=== PATIENT | male | born 1970 | race Caucasian/White ===

== ENCOUNTER 2021-02-08 14:22 | Outpatient (CLI) | payer OTHER, SELFPAY ==
[2021-02-08] MEDS: 0.9% Saline Lock 10 ML Syringe IV (14:35)
[2021-02-08 14:36] VITALS: BP 172/85; PULSE 104; RESP 22; TEMP 37.3; O2SAT 95; BMI 43.0
[2021-02-08 15:38] VITALS: BP 154/91; PULSE 99; RESP 16; TEMP 38.9; O2SAT 95
[2021-02-08] MEDS: Acetaminophen 325 MG Tablet 650 MG PO (15:44)
[2021-02-08 16:42] VITALS: BP 155/80; PULSE 98; RESP 18; TEMP 37.1; O2SAT 96
== END 2021-02-08 16:43 | disposition home or self-care (01) ==
LOC: MS3OUT 14:24 → MS3 14:25
PROVIDERS: Referring Provider Nurse Practitioner Adult Health; Visit Provider Nurse Practitioner Adult Health
DX: U07.1 COVID-19 (principal)
CPT/HCPCS: J7050; M0245; Q0245; A4216

== ENCOUNTER 2022-09-04 07:55 | Day surgery (SDC) | payer OTHER, SELFPAY ==
[2022-09-04] VITALS (7 sets, daily range): BP systolic 122–196; BP diastolic 73–113; PULSE 68–80; RESP 18; TEMP 36.2–37.1; O2SAT 92–98; BMI 43.9
--- NOTE | 2022-09-04 08:37 | PCM.DC.SUM ---
Providers Primary Care Physician: Dr. Flavia Crum MD Reason For Visit: rt excision soft palate mass Medications at Discharge Home Medications atorvastatin 40 mg tablet 40 mg PO DAILY 02/08/21 losartan 100 mg tablet 50 mg PO DAILY 02/08/21 spironolactone 25 mg tablet 25 mg PO DAILY 02/08/21 Bone And Immune Health 1 cap PO/SL BID 07/10/22 amlodipine 10 mg tablet 10 mg PO DAILY 07/10/22 omeprazole 20 mg capsule,delayed release 20 mg PO DAILY 07/10/22 verapamil 180 mg 24 hr capsule,extended release 180 mg PO DAILY 07/10/22 ascorbic acid (vitamin C) 500 mg tablet (Vitamin C) 1,000 mg PO DAILY 09/01/22 D/C Instructions Discharge Diet: Soft diet Additional Instructions: tylenol as needed. Please Follow Up With: Marlo Coyne MD When: 2 weeks Meaningful Use Info Meaningful Use Diagnoses (Choose all that apply): None applicable Discharge Plan Admission Attending Provider: Marlo Coyne Primary Care Provider: Flavia Crum Discharge Orders/Prescriptions Prescriptions: No Action atorvastatin 40 mg Tablet 40 mg PO DAILY spironolactone 25 mg Tablet 25 mg PO DAILY losartan 100 mg Tablet 50 mg PO DAILY verapamil 180 mg Capsule,Ext Rel. Pellets 24 Hr 180 mg PO DAILY amlodipine 10 mg Tablet 10 mg PO DAILY omeprazole 20 mg Capsule,Delayed Release(Dr/Ec) 20 mg PO DAILY Bone And Immune Health 1 cap PO/SL BID ascorbic acid (vitamin C) [Vitamin C] 500 mg Tablet 1,000 mg PO DAILY Referrals / Follow Up: Flavia Crum MD [Primary Care Provider] - Disposition Disposition (needs filled in before D/C Order can be placed): Home, Self Care
[2022-09-04] MEDS: Lactated Ringers 1,000 ML 15 ML IV (08:41)
--- NOTE | 2022-09-04 09:30 | SOF_PTH ---
PATIENT: ZARIA GILMORE LOC: [facility] [place] U#:[id number] AGE/SX: 51/M ROOM: RE09/04/[address]: Dr. Marlo Coyne MD : 1970 BED: DIS: 09/04/2022 SPEC #: [id number] RECD: 09/04/22 10:25 STATUS: ANAHY REFrancisco J #: [id number] JOE: 09/04/22 09:[address]: Marlo Coyne DEPT: SURGICAL PATHOLOGY RECD BY: Ailyn Abarca ENTERED: 09/04/22 10:39 SP TYPE: SOFT TISS OTHR DR: Dr. Flavia Crum MD Tissues: Palate, NOS Procedures: Surgery Specimen Level IV HEADER OPERATION: Excision soft palate mass PRE-OP DIAGNOSIS: Soft palate mass TISSUE SUBMITTED: Soft palate mass MICROSCOPIC DIAGNOSIS Soft palate mass, biopsy: Consistent with squamous papilloma. AM:victor manuel 09/05/2022 MICROSCOPIC DESCRIPTION Slides are reviewed. GROSS DESCRIPTION Received in fixative is one container labeled with the patient's name and designated soft palate mass. The specimen consists of a single discoid fragment of pink-covarrubias soft tissue measuring 0.5 cm in diameter and 0.2 cm in thickness. The specimen is totally submitted in one cassette. / AM:victor manuel 09/04/2022 TC:5 CPT: 26266
[2022-09-04] MEDS: Lidocaine 1% /Epi 1:100 (20ml) 20 ML Vial (09:38)
--- NOTE | 2022-09-04 09:44 | PCM.OPRPT ---
Report of Operation Date of Procedure: 09/04/22 Pre-Operative Diagnosis: soft palate mass Post-Operative Diagnosis: same Surgery/Procedure Performed:: excision soft palate mass with repair Surgeon: Marlo Coyne Type of Anesthesia: General Anesthesiologist: Germán Faustin Estimated Blood Loss (mL): minimal Description of Procedure: The patient was taken to the operating on 09/04/2022. He was placed in the supine position on the operating room table. He was given sufficient general anesthesia. The table was turned 90 degrees in a counterclockwise fashion. A Anibal mouthgag was inserted into the patient's mouth and the patient was suspended on a Schuler stand. 1% lidocaine with epinephrine injected into the mucosa surrounding the lesion. Next the lesion was grasped with DeBakey forceps and excised from the soft palate mucosa with a 15 blade. I then repaired the incision with interrupted 4-0 chromic. Hemostasis was ensured. All blood was suctioned from the oropharynx. All instrumentation was then removed. The patient was then awoken and brought to the recovery room in stable condition. Blood loss minimal, replacement none. Sponge,needle, and instrument count were correct at the end of procedure.
--- NOTE | 2022-09-04 11:00 | SUR.PHASEI ---
PATIENT HAS BEEN HYPOXIC OFF O2, ENCOURAGING PULMONARY TOILET, INCENTIVE SPIROMETRY. ALSO, 15 SECOND PERIODS OF APNEA NOTED WHEN SLEEPING; STATES HE RECENTLY COMPLETED A SLEEP STUDY & IS AWAITING RESULTS. PATIENT IRRITABLE, STATES I'M READY TO GO... WHAT'S THE HOLD UP? PATIENT ADMITS HE'S A 1 PPD SMOKER. EXPLAINED HIS OXYGEN STATUS IS KEEPING HIM IN PACU. WILL CONTINUE TO MONITOR.
== END 2022-09-04 11:27 | disposition home or self-care (01) ==
LOC: SDC 07:58 → AC 07:59
PROVIDERS: PCP Family Medicine; Referring Provider Otolaryngology; Visit Provider Otolaryngology
PROC: (CPT 42106; principal; 2022-09-04 09:15)
DX: D10.6 Benign neoplasm of nasopharynx (principal); G47.30 Sleep apnea, unspecified; F17.290 Nicotine dependence, other tobacco product, uncomplicated; Z79.899 Other long term (current) drug therapy; Z86.16 Personal history of COVID-19; K21.9 Gastro-esophageal reflux disease without esophagitis; E78.00 Pure hypercholesterolemia, unspecified; I10 Essential (primary) hypertension
CPT/HCPCS: 42106; 00170; 88305; 93005; J7120; J2405